=== PATIENT | female | born 1950 | race Caucasian/White ===

== ENCOUNTER 2024-01-23 09:34 | Emergency (ER) | payer MEDICARE, MEDICAID ==
[~2024-01-23] VITALS: Ht 160 cm; Wt 82.4 kg
[2024-01-23] MEDS: ondansetron/PF 4mg/2ml inj IV ONE (10:27)
[2024-01-23] MEDS: normal saline 1000ML IV soln IVB ONE (10:27)
[2024-01-23] MEDS: acetaminophen 1,000mg/100ml IV 100 ML IV ONE (10:29)
[2024-01-23 10:35] LABS: PROTHROMBIN TIME 10.6 SECONDS (9.0-12.0)
[2024-01-23 10:44] LABS: EOSINOPHILS # (AUTO) 0.3 X10'3 (0-0.9); HEMOGLOBIN 14.6 g/dl (12.0-16.0); WHITE BLOOD COUNT 8.6 X10'3 (4.5-11.0)
[2024-01-23 10:45] LABS: LIPASE 39 U/L (16-77); MAGNESIUM 1.5 MG/DL (1.5-2.4); PRO BRAIN NATRIURETIC PEPTIDE 168 PG/ML (0-450)
[2024-01-23 10:46] LABS: BASOPHILS # (AUTO) 0.1 X10'3 (0-0.2); EOSINOPHILS % (AUTO) 2.9 % (0-6); HEMATOCRIT 43.3 % (35.0-45.0); LYMPHOCYTES # (AUTO) 2.3 X10'3 (1.1-4.8); LYMPHOCYTES % (AUTO) 26.7 % (21-51); MEAN CORPUSCULAR HEMOGLOBIN 30.1 PG (27.0-31.0); MEAN CORPUSCULAR HGB CONC 33.6 g/dL (33.0-36.5); MEAN CORPUSCULAR VOLUME 89.5 FL (78-98); MEAN PLATELET VOLUME 10.2 FL (7.4-10.4); MONOCYTES # (AUTO) 0.7 X10'3 (0-0.9); MONOCYTES % (AUTO) 8.3 % (2-12); NEUTROPHILS # (AUTO) 5.3 X10'3 (1.8-7.7); NEUTROPHILS % (AUTO) 61.1 % (42-75); PLATELET COUNT 284 X10'3 (140-440); RED BLOOD COUNT 4.84 X10'6 (4.20-5.60); RED CELL DISTRIBUTION WIDTH 13.8 % (11.5-14.5)
[2024-01-23 13:24] VITALS: BP 158/84; PULSE 73; RESP 16; TEMP 98.9; O2SAT 97
== END 2024-01-23 13:25 | disposition home or self-care (01) ==
LOC: ER 09:35
DX: R11.2 Nausea with vomiting, unspecified (principal); R61 Generalized hyperhidrosis; R07.89 Other chest pain
CPT/HCPCS: 36415; 71045; 83690; 83735; 83880; 84484; 85025; 85610; 93005; 96374; 96375; 99285; J0131; J2405; J7030; 96365